=== PATIENT | female | born 1985 | race Two or more races ===

== ENCOUNTER 2024-09-09 18:28 | Emergency (ER) | payer OTHER ==
[~2024-09-09] VITALS: Ht 165.1 cm; Wt 90.7 kg
[~2024-09-09 18:28] MED LIST: CIPRO500 MG PO; SYNTHROID50 MCG PO
[2024-09-09] MEDS ORDERED: ZYRTEC10 M3 PO (21:30)
[2024-09-09] MEDS ORDERED: ATARAX25 MG PO (21:30)
[2024-09-09] MEDS ORDERED: DIPHENHYDRAMINE HCL 50 MG/ML VIAL 1ML IM ONE (21:45)
[2024-09-09] MEDS ORDERED: FAMOtidine 10 MG/ML (4ML VIAL) IV PUSH ONE (21:45)
[2024-09-09] MEDS ORDERED: DEXAMETHASONE SODIUM PHOSPHATE 4 MG/ML VIAL IV ONE (21:45)
== END 2024-09-09 23:09 | disposition home or self-care (01) ==
LOC: ER 18:28
DX: T78.40XA Allergy, unspecified, initial encounter (principal); Z88.6 Allergy status to analgesic agent; Z88.0 Allergy status to penicillin; Z91.041 Radiographic dye allergy status; E03.8 Other specified hypothyroidism; Z91.013 Allergy to seafood